=== PATIENT | female | born 1995 | race Caucasian/White ===

== ENCOUNTER 2017-03-16 18:39 | Observation (INO) | payer OTHER ==
[~2017-03-16] VITALS: Ht 177.8 cm; Wt 81.6 kg
--- NOTE | ~2017-03-16 | S ---
[facility] [place] [address] SURGICAL PATH RPT PROCEDURE Name: PREET ALCAZAR Room #: [address] [place] [address] Melvi Peterson#: [id number] Admission: 03/16/17 Date of : 89 Discharge: 03/18/17 Report #: [id number] Path Case #: [id number] PATHOLOGY REPORT COLLECTION DATE: 03/17/2017 RECEIVED DATE: 03/17/2017 SUBMITTING PHYS: Dr. Howard Valdivia OTHER PHYS: Sergio Kaur SPECIMEN(S) RECEIVED: A.Appendix * * * * * * * * * * * * FINAL DIAGNOSIS: Appendix, appendectomy: - Appendix with no significant acute or chronic inflammation in muscular wall. (Please see comment) COMMENT: The prominent ganglion cels in the wall of the appendix are positive for S100 and synaptophysin and they are negative for Ae1/3. No evidence of a carcinoid tumor is seen. Note that the entire appendix was submitted for histologic examination. (SKM:meli; 03/18/2017) PATHOLOGIST: Mario Alvarado M.D. REPORT ELECTRONICALLY SIGNED BY: Mario Alvarado M.D. DATE/TIME: 03/22/2017 09:49 * * * * * * * * * * * * GROSS PATHOLOGY: Received in formalin labeled "Preet Lyn, appendix" and consists of a vermiform appendix measuring 4.9 cm length by 0.6 cm in diameter. The serosa is glistening and pink. The margin is inked black. Sectioning reveals a pinpoint lumen. There are no mucosal lesions identified. The specimen is totally submitted A1-A3. (TREVOR; 03/17/2017) CLINICAL HISTORY: Acute appendicitis INITIAL CPT CODE(S): A; 17743, 23751, 59009, 03173 [facility] [place] [address] SURGICAL PATH RPT PROCEDURE Name: PREET ALCAZAR Room #: 410-P MICHEAL Peterson#: [id number] Admission: 03/16/17 Date of : [birth year] Discharge: 03/18/17 Report #: [id number] Path Case #: [id number] Professional services performed by [facility] at [address], [place] [address] Technical services performed by [facility] at [address] [place] [address], [place] [address]. [facility] [address] [place] [address] PHONE: [phone] DIRECTOR: Jez Love M.D. * * * END OF REPORT * * *
--- NOTE | ~2017-03-16 | H ---
[facility] [place] [address] HISTORY AND PHYSICAL Name: HANS ALCAZAR Room #: 170-17 [facility] M.R.#: [id number] Admission: 03/16/17 Attend Phys: Howard Valdivia MD, F Discharge: Date of : 96 Report #: [id number] THIS REPORT FOR: //name// CC: NO PCP Howard Valdivia DATE OF SERVICE: 03/17/2017 CHIEF COMPLAINT: Right lower quadrant abdominal pain. HISTORY OF PRESENT ILLNESS: This is an otherwise healthy 21-year-old female patient who was seen in the [facility] with complaints of right lower quadrant abdominal pain starting yesterday with associated nausea but no emesis. The patient was found to have leukocytosis. She underwent a CT of the abdomen and pelvis which showed no secondary signs of acute appendicitis. The appendix was difficult to see due to the low lying cecum in the pelvis. Ovarian cyst changes were also seen. She then underwent a transvaginal and pelvic ultrasound, which showed a left ovarian cyst. I have been asked to see the patient for further evaluation and treatment. The patient denies fever or chills. She passed a regular bowel movement, followed by 2-3 liquid bowel movements yesterday. She denies bright red blood per rectum. After her visit to the Emergency Room last night and stay in the hospital overnight, her white blood cell count remains elevated. She has not received antibiotics and has been given appropriate IV fluid resuscitation. Her right lower quadrant pain continues. PAST MEDICAL HISTORY: Denies. PAST SURGICAL HISTORY: 1. Tonsillectomy and adenoidectomy. 2. [place] teeth extraction. HOME MEDICATIONS: No routine medications. ALLERGIES: No known drug allergies. FAMILY HISTORY: Reviewed and noncontributory to this hospitalization. SOCIAL HISTORY: The patient denies use of tobacco, alcohol or illicit drugs. 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 REVIEW OF SYSTEMS: As per history of present illness. In addition, GENERAL: The patient denies fever or chills. Denies unintentional weight loss. HEENT: Denies changes in taste, vision, hearing or smell. RESPIRATORY: Denies shortness of breath, COPD or asthma. CARDIOVASCULAR: Denies chest pain or palpitations. [facility] [address] [place] [address] HISTORY AND PHYSICAL Name: HANS ALCAZAR Room #: [address] [place] [address]..#: [id number] Admission: 03/16/17 Attend Phys: Howard Valdivia MD, F Discharge: Date of : 96 Report #: [id number] GASTROINTESTINAL: As per history of present illness. Denies bright red blood per rectum. GENITOURINARY: Denies dysuria, urgency, increased urinary frequency or hematuria. MUSCULOSKELETAL: Denies myalgia, arthralgia or arthritis. NEUROLOGIC: Denies headaches, numbness or tingling. PSYCHIATRIC: Denies depression, anxiety or suicidal ideations. SKIN AND INTEGUMENTARY: Denies new skin lesions, rashes or moles. ENDOCRINE: Denies polydipsia, polyuria, heat or cold intolerance. HEMATOLOGIC: Denies easy bleeding, bruising or anemia. All other review of systems is negative. PHYSICAL EXAMINATION: VITAL SIGNS: Temperature 37.0 degree Celsius, blood pressure 95/51, pulse 72, respirations 16. GENERAL: This is a well-developed, well-nourished, healthy-appearing 21-year-old female patient who also appears uncomfortable. HEENT: Atraumatic, normocephalic with moist mucosal membranes. Oropharynx is clear. She has no scleral icterus. NECK: Supple, no appreciable lymphadenopathy. Trachea is midline. CHEST: Clear bilaterally. No crackles or wheezes. CARDIOVASCULAR: Regular rate and rhythm, S1, S2. ABDOMEN: Soft, but tender to palpation, greatest in the right lower quadrant/right pelvis. She has mild rebound and exhibits voluntary guarding. She also has a positive Rovsing sign. A naval castillo is present. GENITOURINARY: Normal external female genitalia. EXTREMITIES: No clubbing, cyanosis or edema. NEUROLOGIC: Cranial nerves 2-12 grossly intact. PSYCHIATRIC: Normal mood and affect. SKIN AND INTEGUMENTARY: No acute inflammatory changes, rashes or lesions are present. LABORATORY DATA: CBC shows a white blood cell count of 14.1 today (50.6 last night), hemoglobin 12.9, hematocrit 38.8 and platelets 236. Electrolytes showed a sodium of 139, potassium 3.8, chloride 105, CO2 of 26, BUN 9, creatinine 0.9 and glucose 104. Liver function tests from last night were within normal limits. Urinalysis was entirely negative. UCG was also negative. RADIOLOGIC STUDIES: CT and pelvic/transvaginal ultrasound findings are as noted above. IMPRESSION AND PLAN: This is a 21-year-old female patient with a right lower quadrant abdominal pain, leukocytosis, anorexia and an exam showing voluntary guarding, rebound and a positive Rovsing sign. Her appendix was not able to be identified on CT. Her pelvic and transvaginal ultrasound showed a left ovarian [address] [place] [address] HISTORY AND PHYSICAL Name: HANS LACAZAR Room #: 170-17 [facility] Melvi Peterson#: [id number] Admission: 03/16/17 Attend Phys: Howard Valdivia MD, F Discharge: Date of : 96 Report #: [id number] cyst. The patient was observed overnight and was given IV fluids, but not IV antibiotics. Her white blood cell count remains elevated. She continues to have pain. We discussed the pathophysiology and natural history of acute appendicitis as well as treatment alternatives and surgical options. The patient would benefit from diagnostic laparoscopy with an appendectomy. We discussed the risks, benefits and expectations of the operation in detail. The patient expressed understanding and wishes to proceed. She will be taken to the operating room at the next earliest availability. <ELECTRONICALLY SIGNED> By: oHward Valdivia MD, FACS 03/17/17 [id number] [id number] Howard Valdivia MD, FACS /nt
--- NOTE | ~2017-03-16 | O ---
[facility] [place] [address] OPERATIVE REPORT Name: HANS ALCAZAR Room #: [address] [place] [address]..#: [id number] Admission: 03/16/17 Attend Phys: Howard Valdivia MD, F Discharge: 03/18/17 Date of : 96 Report #: [id number] THIS REPORT FOR: //name// CC: NO PCP Howard Valdivia DATE OF SERVICE: 03/17/2017 SURGEON: Howard Valdivia MD. [employer] CHIEF CLERK: Alma Delia Leon NP. PREOPERATIVE DIAGNOSIS: Right lower quadrant abdominal pain, suspect acute appendicitis. POSTOPERATIVE DIAGNOSIS: Right lower quadrant abdominal pain, likely secondary to acute right salpingitis. PROCEDURES: 1. Diagnostic laparoscopy. 2. Laparoscopic appendectomy. ANESTHESIA: General endotracheal anesthesia and local anesthetic. ESTIMATED BLOOD LOSS: 2 mL. SPECIMEN: Appendix. COMPLICATIONS: None appreciated. INDICATIONS FOR PROCEDURE: This is a 21-year-old female patient who was seen in the [facility] Room with complaints of right lower quadrant abdominal pain and nausea. The patient was found to have leukocytosis. CT of the abdomen and pelvis showed no secondary signs of acute appendicitis. The appendix was difficult to visualize due to the low-lying cecum in the pelvis. Ovarian cyst changes were also seen. A transvaginal and pelvic ultrasound showed a left ovarian cyst. The patient was observed overnight. The patient has persistent leukocytosis with a white blood cell count of 14.1 today (15.6 at admission). She has continued abdominal pain with a positive Rovsing's sign, mild rebound and voluntary guarding. She presents now for diagnostic laparoscopy with appendectomy. OPERATIVE FINDINGS: Upon entrance in the abdominal cavity, a small amount of free fluid was seen in the pelvis. There was no pus seen. The appendix was adjacent to the right fallopian tube, which was erythematous and edematous. The tip of the appendix was involved with a small amount of inflammation as [facility] [address] [place] [address] OPERATIVE REPORT Name: HANS ALCAZAR Room #: [address] [place] [address].#: [id number] Admission: 03/16/17 Attend Phys: Howard Valdivia MD, F Discharge: 03/18/17 Date of : 96 Report #: [id number] well, likely secondary to its proximity to the right fallopian tube. The base of the appendix was uninvolved with inflammatory change. There was no evidence for a Meckel's diverticulum. No other significant intra-abdominal pathology was identified, other than small follicular ovarian cysts. DESCRIPTION OF PROCEDURE IN DETAIL: After the risks, benefits and expectations of the operation were discussed in detail with the patient, informed consent was obtained. The patient was identified in the preoperative holding area. She was given IV antibiotics as documented in the chart in line with SCIP metrics. The patient was then taken to the operating room, where she was placed in the supine position. SCDs were placed on the patient's bilateral lower extremities and pneumatic compression was initiated. The patient was then given IV sedation and she was intubated without incident. Her abdomen was prepped and draped in the standard sterile fashion. A time-out was performed to identify the correct patient and procedure. Local anesthetic was infiltrated into the skin and subcutaneous tissue infraumbilically, where a curvilinear incision was made with #15 blade scalpel. Dissection was carried down to the fascia. A small fascial opening was created. A 0-degree angled laparoscope was then used to place the 12-mm port intra-abdominally. Pneumoperitoneum was achieved with insufflation of carbon dioxide to 15 mmHg. A 30-degree angled laparoscope was inserted. The patient was placed in the Trendelenburg position. A suprapubic 5 mm and left lower quadrant 5-mm port were each placed under direct visualization after local anesthetic was infiltrated into the skin and subcutaneous tissue and appropriately sized incisions were made. Operative findings are as noted above. The appendix was identified. The small bowel was run back and there was no evidence for a Meckel's diverticulum. The pelvic organs were then examined. Decision was made to perform the appendectomy. A window was made in the mesoappendix adjacent to the appendix at its base. A blue load endoscopic 45 mm DARRIAN stapler was then used to staple and divide the appendix. The mesoappendix was divided with the ultrasonic dissector with good hemostasis. The appendix and mesoappendix were then placed in the Endopouch and removed through the infraumbilical port site. A fargvr-qz-yahmi 0 PDS suture was then placed and the suture was tagged. The port was replaced. The abdominal cavity was re-entered. The pelvis was irrigated and suctioned and return of all drainage ran clear. The port site fascial suture was then tied under direct visualization to ensure no incorporation of intra-abdominal content. The abdominal cavity was desufflated and the ports were removed. Interrupted subcuticular 4-0 Monocryl sutures and Dermabond were used to close the skin incisions. The patient tolerated the procedure well. She was awakened, extubated and taken to recovery room in stable condition, with no apparent intraoperative complications. [address] [address] OPERATIVE REPORT Name: HANS ALCAZAR Room #: 410-P MICHEAL Peterson#: [id number] Admission: 03/16/17 Attend Phys: Howard Valdivia MD, F Discharge: 03/18/17 Date of : 96 Report #: [id number] The patient will be placed on antibiotics to treat pelvic inflammatory disease. <ELECTRONICALLY SIGNED> By: Howard Valdivia MD, FACS 03/29/17 0752 [id number] 0121 Howard Valdivia MD, FACS /nt
[2017-03-16 19:27] LABS: URINE BILIRUBIN NEGATIVE (Negative); URINE BLOOD NEGATIVE (Negative); URINE CLARITY CLEAR; URINE COLOR YELLOW; URINE GLUCOSE-RANDOM* NEGATIVE (Negative); URINE KETONES NEGATIVE (Negative); URINE LEUKOCYTES NEGATIVE (Negative); URINE NITRITE NEGATIVE (Negative); URINE PROTEIN (DIPSTICK) NEGATIVE (Negative); URINE UROBILINOGEN 0.2 E.U./dl (0.2-1.0)
[2017-03-16 20:05] LABS: ABSOLUTE NEUTROPHILS 12.4 thou/uL (1.4-8.2); BASOPHILS 0.6 % (0.0-2.0); EOSINOPHILS 0.6 % (0.0-3.0); HEMOGLOBIN 13.8 gm/dL (12.0-15.0); LYMPHOCYTES 13.6 % (24.0-44.0); MCH 29.7 pg (26.0-34.0); MCHC 33.6 g/dL (28.0-37.0); MCV 88.4 fL (80.0-100.0); MONOCYTES 5.6 % (1.0-8.0); PLATELET COUNT 262 thou/uL (150-400); POLYS 79.6 % (36.0-66.0); RBC 4.64 mil/uL (4.20-5.00); RDW 13.1 % (10.5-14.5); WBC 15.6 thou/uL (4.0-11.0)
[2017-03-16 20:16] LABS: CALCIUM 9.2 mg/dL (8.5-10.1); POTASSIUM 3.7 mmol/L (3.5-5.1)
[2017-03-16 20:22] LABS: ALBUMIN 4.2 g/dL (3.4-5.0); DIRECT BILIRUBIN 0.2 mg/dL (<0.1-0.3); TOTAL BILIRUBIN 0.6 mg/dL (<0.1-1.0); TOTAL PROTEIN 7.4 g/dL (6.4-8.2)
[2017-03-16 23:04] VITALS: BP 96/63
[2017-03-16 23:38] VITALS: BP 95/61
[2017-03-17] VITALS (10 sets, daily range): BP systolic 83–97; BP diastolic 36–55
[2017-03-17 02:46] LABS: HEMATOCRIT 38.8 % (37.0-47.0); HEMOGLOBIN 12.9 gm/dL (12.0-15.0); MCH 29.3 pg (26.0-34.0); MCHC 33.2 g/dL (28.0-37.0); MCV 88.3 fL (80.0-100.0); RBC 4.4 mil/uL (4.20-5.00); RDW 13.1 % (10.5-14.5); WBC 14.1 thou/uL (4.0-11.0)
[2017-03-17 02:48] LABS: CALCIUM 8.6 mg/dL (8.5-10.1); CREATININE 0.9 mg/dL (0.6-1.0); POTASSIUM 3.8 mmol/L (3.5-5.1)
[2017-03-17] MEDS ORDERED: SENNA-S TABLET1 EACH PO (12:29)
[2017-03-17] MEDS ORDERED: AMPICILLIN TRI500 MG PO (12:29)
[2017-03-17] MEDS ORDERED: CLEOCIN HCL150 MG PO (12:29)
[2017-03-17] MEDS ORDERED: DIFLUCAN200 MG PO (12:29)
[2017-03-17] MEDS ORDERED: HYDROCODONE-AP1 EAC6 PO (12:29)
[2017-03-18 03:48] LABS: ABSOLUTE NEUTROPHILS 9.5 thou/uL (1.4-8.2); BASOPHILS 0.2 % (0.0-2.0); HEMATOCRIT 35.1 % (37.0-47.0); HEMOGLOBIN 11.8 gm/dL (12.0-15.0); LYMPHOCYTES 11.1 % (24.0-44.0); MCH 29.7 pg (26.0-34.0); MCHC 33.6 g/dL (28.0-37.0); MCV 88.5 fL (80.0-100.0); MONOCYTES 5.3 % (1.0-8.0); PLATELET COUNT 233 thou/uL (150-400); POLYS 83.4 % (36.0-66.0); RBC 3.96 mil/uL (4.20-5.00); WBC 11.4 thou/uL (4.0-11.0)
[2017-03-18 04:00] VITALS: BP 80/41
[2017-03-18 04:06] LABS: CALCIUM 8.9 mg/dL (8.5-10.1); POTASSIUM 4.1 mmol/L (3.5-5.1)
[2017-03-18 07:48] VITALS: BP 89/43
== END 2017-03-18 13:30 | disposition home or self-care (01) ==
LOC: ER 18:39 → EROBS 21:42 → 4N 03-17 10:46 → EROBS 03-17 10:46 → 4N 03-17 16:29 → ENTRNSPT 03-18 13:22 → EDTRNSPTSTS 03-18 13:28 → 4N 03-18 13:30
PROVIDERS: Nurse Practitioner; Surgery
PROC: 0DTJ4ZZ Resection of Appendix, Percutaneous Endoscopic Approach (ICD-10-PCS; principal; 2017-03-17)
DX: R10.31 Right lower quadrant pain (principal); D72.829 Elevated white blood cell count, unspecified; R63.0 Anorexia
CPT/HCPCS: 50010; 50101; 50249; 50411; 50555; 50558; 50739; 50740; 50962; 51489; 51975; 52265; 53307; 54022; 54118; 56526; 56527; 62110; 62900; 70005

== ENCOUNTER 2017-04-03 14:13 | Inpatient (IN) | payer OTHER ==
[~2017-04-03] VITALS: Ht 177.8 cm; Wt 83.9 kg
--- NOTE | ~2017-04-03 | HC ---
[facility] [place] [address] CONSULTATION Name: HANS ALCAZAR Room #: 433-I ADM IN M.R.#: [id number] Admission: 04/03/17 Attend Phys: Jeniffer Monte Discharge: Date of : 96 Report #: [id number] THIS REPORT FOR: //name// CC: FAM physician/PCP Jeniffer Monte DATE OF SERVICE: 04/04/2017 ATTENDING PHYSICIAN: Jeniffer Monte MD. CONSULTING PHYSICIAN: Howard Valdivia MD. REASON FOR CONSULTATION: Abdominal pain, diarrhea. HISTORY OF PRESENT ILLNESS: This 21-year-old female patient is known to me from previous laparoscopic appendectomy. She was found to have right salpingitis. Her path report showed a secondary inflammation of the appendix with no evidence for acute appendicitis. She was placed on clindamycin and ampicillin and was given a prescription for a single dose of Diflucan. She reports having not felt well since taking the antibiotics; however, her symptoms of diarrhea and fatigue have significantly worsened over the past couple of days with inability to eat, lower back pain and alternating fever and chills. The patient was seen in the [facility] with these symptoms. Her laparoscopic appendectomy took place on 03/24/2017. I have been asked to see the patient for further evaluation and treatment. PAST MEDICAL HISTORY: Denies. PAST SURGICAL HISTORY: Laparoscopic appendectomy on 03/24/2017. She has also undergone tonsillectomy and adenoidectomy as well as wisdom teeth extraction. HOME MEDICATIONS: Please see the hospital chart for details. She was placed on clindamycin, ampicillin, single dose of Diflucan and narcotic pain medication with a stool softener. ALLERGIES: No known drug allergies. FAMILY HISTORY: Reviewed and noncontributory to this hospitalization. SOCIAL HISTORY: The patient denies use of tobacco, alcohol or illicit drugs. 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 REVIEW OF SYSTEMS: As per history of present illness. GENERAL: The patient reports alternating fever or chills. Denies unintentional weight loss. HEENT: Denies changes in taste, vision, hearing, or smell. [facility] [address] [place] [address] CONSULTATION Name: HANS ALCAZAR ENEBRICE Room #: 433-I [facility] ..#: [id number] Admission: 04/03/17 Attend Phys: Jeniffer Monte Discharge: Date of : 96 Report #: [id number] RESPIRATORY: Denies shortness of breath, COPD or asthma. CARDIOVASCULAR: Denies chest pain or palpitations. GASTROINTESTINAL: As per history of present illness. Reports some blood in her diarrhea. GENITOURINARY: Denies dysuria, urgency, increased urinary frequency or hematuria. MUSCULOSKELETAL: Denies arthritis. Has had some myalgia. NEUROLOGIC: Denies headaches, numbness or tingling. PSYCHIATRIC: Denies depression, anxiety or suicidal ideations. SKIN AND INTEGUMENTARY: Denies new skin lesions, rashes, or moles. ENDOCRINE: Denies polydipsia, polyuria, heat or cold intolerance. HEMATOLOGIC: Denies easy bleeding, bruising or anemia. All other review of systems is negative. PHYSICAL EXAMINATION: VITAL SIGNS: Temperature 97.8, blood pressure 88/52, pulse 56, respirations 16, height 5 feet 10 inches and weight 185 pounds. GENERAL: This is a 21-year-old female patient who appears fatigued and slightly uncomfortable. HEENT: Atraumatic, normocephalic with moist mucosal membranes. NECK: Supple, no appreciable lymphadenopathy. Trachea is midline. CHEST: Clear bilaterally. No crackles or wheezes. CARDIOVASCULAR: Regular rate and rhythm. ABDOMEN: Soft and mildly diffusely tender to palpation with no significant abdominal distention. No rebound or guarding. No palpable masses. Her laparoscopic incisional scars are healing with no significant periwound inflammatory changes. GENITOURINARY: Normal external female genitalia. EXTREMITIES: No clubbing, cyanosis or edema. NEUROLOGIC: Cranial nerves 2-12 grossly intact. PSYCHIATRIC: Normal mood and affect. SKIN AND INTEGUMENTARY: No acute inflammatory changes, rashes or lesions are present. LABORATORY DATA: CBC at admission yesterday showed a white blood cell count of 17.8, hemoglobin 13.4, hematocrit 39.5 and platelets 277 with 90% segmented neutrophils. Her comprehensive metabolic profile was essentially normal with sodium of 137, potassium 3.9, chloride 103, CO2 of 26, BUN 14, creatinine 1.0. Glucose 20. Her liver function tests were within normal limits. Influenza antigens were not detected. Urinalysis was entirely negative as was her UCG. Lactate was 0.8. Hemoccult stool was negative. RADIOLOGIC STUDIES: CT of the abdomen and pelvis showed wall thickening and enhancement within the rectosigmoid colon suggestive of nonspecific colitis. There was no evidence for perforation, abscess, free air or free fluid, no megacolon was seen. [facility] [address] [place] [address] CONSULTATION Name: HANS ALCAZAR Room #: 433-I ADM IN M.R.#: [id number] Admission: 04/03/17 Attend Phys: Jeniffer Monte Discharge: Date of : 96 Report #: [id number] IMPRESSION AND PLAN: This is a 21-year-old otherwise healthy female patient who is 11 days out from an otherwise uncomplicated laparoscopic appendectomy. She did not have evidence for acute appendicitis, but rather had right salpingitis and was treated with clindamycin and ampicillin. Based on the timing of her symptoms with diarrhea and diffuse abdominal pain as well as her CT findings and leukocytosis, primary consideration is for C. diff colitis. She has been empirically placed on oral vancomycin and IV Flagyl. We will await stool studies, which are pending. I will follow along closely with serial abdominal exams as well as labs and x-rays as necessary. She has no acute general surgery issue at this time. Her low blood pressure has been responsive to fluids; however, I suspect that her systolic blood pressure is normally below 90. No evidence for sepsis. I sincerely appreciate the opportunity to participate in the care of this patient and will leave further recommendations and orders in the electronic medical record as appropriate. <ELECTRONICALLY SIGNED> By: Howard Valdivia MD, FACS 04/05/17 0758 [id number] [id number] Howard Valdivia MD, FACS /nt
[~2017-04-03 14:13] MED LIST: AMPICILLIN TRI500 MG PO; CLEOCIN HCL150 MG PO; DIFLUCAN200 MG PO; HYDROCODONE-AP1 EAC6 PO; SENNA-S TABLET1 EACH PO
[2017-04-03 14:17] VITALS: BP 113/63
[2017-04-03 14:58] LABS: BASOPHILS 0.4 % (0.0-2.0); EOSINOPHILS 0.1 % (0.0-3.0); HEMATOCRIT 39.5 % (37.0-47.0); HEMOGLOBIN 13.4 gm/dL (12.0-15.0); LYMPHOCYTES 4.8 % (24.0-44.0); MCH 29.6 pg (26.0-34.0); MCHC 33.9 g/dL (28.0-37.0); MCV 87.2 fL (80.0-100.0); MONOCYTES 4.6 % (1.0-8.0); PLATELET COUNT 277 thou/uL (150-400); POLYS 90.1 % (36.0-66.0); RBC 4.54 mil/uL (4.20-5.00); RDW 12.9 % (10.5-14.5); WBC 17.8 thou/uL (4.0-11.0)
[2017-04-03] MEDS ORDERED: BCP PO (15:01)
[2017-04-03 15:05] LABS: CALCIUM 9.1 mg/dL (8.5-10.1); POTASSIUM 3.9 mmol/L (3.5-5.1)
[2017-04-03 15:11] LABS: ALBUMIN 3.7 g/dL (3.4-5.0); TOTAL BILIRUBIN 0.6 mg/dL (<0.1-1.0); TOTAL PROTEIN 7.4 g/dL (6.4-8.2)
[2017-04-03 15:51] LABS: URINE BILIRUBIN NEGATIVE (Negative); URINE BLOOD NEGATIVE (Negative); URINE CLARITY CLEAR; URINE COLOR YELLOW; URINE GLUCOSE-RANDOM* NEGATIVE (Negative); URINE KETONES NEGATIVE (Negative); URINE LEUKOCYTES-REFLEX NEGATIVE (Negative); URINE NITRITE-REFLEX NEGATIVE (Negative); URINE PROTEIN (DIPSTICK) NEGATIVE (Negative); URINE UROBILINOGEN 0.2 E.U./dl (0.2-1.0)
[2017-04-03 17:51] VITALS: BP 97/58
[2017-04-03 19:08] VITALS: BP 90/53
[2017-04-04 08:00] VITALS: BP 88/52
[2017-04-04 10:04] VITALS: BP 88/52
[2017-04-04 16:00] VITALS: BP 88/52; BP 89/51
[2017-04-04 20:03] VITALS: BP 99/48
[2017-04-05 05:00] VITALS: BP 103/53
[2017-04-05 06:34] LABS: HEMATOCRIT 34.4 % (37.0-47.0); HEMOGLOBIN 11.7 gm/dL (12.0-15.0); MCH 29.7 pg (26.0-34.0); MCHC 33.9 g/dL (28.0-37.0); MCV 87.7 fL (80.0-100.0); RBC 3.92 mil/uL (4.20-5.00); RDW 12.7 % (10.5-14.5); WBC 7.4 thou/uL (4.0-11.0)
[2017-04-05 07:18] VITALS: BP 90/47
[2017-04-05 09:38] VITALS: BP 90/47
[2017-04-05] MEDS ORDERED: VANCOMYCIN HCL10 GM PO (10:05)
[2017-04-05] MEDS ORDERED: ACIDOPHILUS1 EAC4 PO (10:06)
[2017-04-05 10:23] VITALS: BP 90/47
[2017-04-05 16:47] VITALS: BP 84/33
[2017-04-05 19:19] VITALS: BP 88/48
[2017-04-06 04:30] VITALS: BP 93/53
[2017-04-06 07:30] VITALS: BP 91/47
[2017-04-06] MEDS ORDERED: ZOFRAN ODT4 MG PO (08:32)
[2017-04-06] MEDS ORDERED: PROTONIX 20 MG20 M1 PO (08:32)
== END 2017-04-06 11:55 | disposition home or self-care (01) | DRG 871 ==
LOC: ER 14:13 → 4S 17:17 → EROBS 17:17 → 4S 18:10
PROVIDERS: Hospitalist; Physician Assistant
DX: A41.9 Sepsis, unspecified organism (principal); E43 Unspecified severe protein-calorie malnutrition; A04.72 Enterocolitis due to Clostridium difficile, not specified as recurrent; Z68.26 Body mass index [BMI] 26.0-26.9, adult; Z90.49 Acquired absence of other specified parts of digestive tract; Z79.899 Other long term (current) drug therapy
CPT/HCPCS: 10195